=== PATIENT | male | born 1975 | race Caucasian/White ===

== ENCOUNTER 2022-06-12 06:40 | Day surgery (SDC) | payer MEDICARE, OTHER ==
--- NOTE | 2022-06-05 08:51 | NUR ---
PT FROM [facility] AND WILL HAVE A STAFF PERSON WITH HIM AT ALL TIMES.
[~2022-06-12] VITALS: Ht 167.6 cm; Wt 61.8 kg
[~2022-06-12 06:40] MED LIST: ASPIRIN81 MG PO; ATENOLOL100 MG PO; ENALAPRIL MALEA20 MG PO; HYDROCHLOROTH12.5 M1 PO; JARDIANCE25 MG PO; METFORMIN HCL500 MG PO; MULTI VITAMIN1 EACH PO; OLANZAPINE ODT20 MG PO; TRULICITY3 MG/0.5 M SQ; ZOCOR40 MG PO
--- NOTE | 2022-06-12 07:06 | NUR ---
HAS [facility] ACCOMPANYING PT TODAY, RUTH. O R CHARGE AWARE.
--- NOTE | 2022-06-12 09:00 | NUR ---
06/12/22 0900 Magnolia Valdivia PATIENT IS AWAKE AND TALKING WITH ME. HE REPORTS "I THOUGHT I HAD TO GO TO WORK, BUT I DON'T." OXYGEN IS REMOVED AT THIS TIME. OXYGEN SATURATION REMAINS 100% ON RA.
--- NOTE | 2022-06-12 16:55 | OR ---
[facility] [address], [place] [address] Signed DATE OF OPERATION: 06/12/2022 SURGEON: Ivette Andrews MD PREOPERATIVE DIAGNOSES: 1. Screening. 2. Intermittent constipation. POSTOPERATIVE DIAGNOSES: 1. 5 mm and 3 mm polyps at 8 cm in rectum. 2. Minimal pandiverticulosis. PROCEDURE: Colonoscopy with hot biopsy. ESTIMATED BLOOD LOSS: None. INDICATIONS: Autumn is a 47-year-old gentleman, who was asked to see me for his initial screening colonoscopy by his primary care provider. He comes with his caregiver from our [facility]. He has no lower GI complaints other than intermittent constipation. He has no family history of colon cancer or polyps. He has had a previous traumatic brain injury. He has a history of alcohol abuse and associated cardiomyopathy. He is also a diabetic. Consequently we did ask for monitored anesthesia care today, which worked out very well. We did keep his caregiver in the room for the procedure as well. In the office, I gave Autumn a pamphlet on colonoscopy. We had reviewed the test together. There is risk including, but not limited to gas bloating, crampy abdominal pain, bleeding, perforation requiring surgery, and missed diagnosis. He had expressed understanding and wished to proceed. PROCEDURE NOTE: Autumn was taken into our endoscopy suite and placed in the left lateral decubitus position. He was given IV sedation with propofol per our nurse sap bw consultant. A digital rectal exam was performed and this was unremarkable. There were no external hemorrhoids. He had good sphincter tone. Prostate was not particularly concerning. The adult colonoscope had been introduced and advanced under direct visualization of the camera without difficulty. Unfortunately, he still had some areas of heavy particulate stool matter that simply could not be irrigated or suction through the scope. He should consider a double bowel prep in the future. We made our way into the cecum where we Electronically Signed By: IVETTE ANDREWS MD 06/12/22 7434 PATIENT NAME: AUTUMN MOREL OPERATIVE REPORT DATE OF : 75 REPORT #: [id number] PHYSICIAN: IVETTE ANDREWS MD PCP: TERRIE CARLSON MD REPORT IS CONFIDENTIAL AND NOT TO BE RELEASED WITHOUT AUTHORIZATION [facility] [address], [place] [address] Signed could see the ileocecal valve in the base of the cecum. The scope was then slowly withdrawn. We took pictures throughout for photodocumentation. We saw just a few diverticula in the right and left colons. There were few in number, minimal to moderate in size and scattered about. There were no polyps in the colon. He had two small polyps in the rectum, which we removed with a hot biopsy forceps. The scope was then retroflexed in the rectum and really not much in the way of any additional pathology above the anal canal. It looks like he has just very tiny standard internal hemorrhoid columns. After this, the gas was suctioned out and the colonoscope removed. Autumn tolerated the procedure quite well. RECOMMENDATIONS: I will see Autumn back in my office in the next 1 to 2 weeks to review his results. He should have monitored anesthesia care in the future. He will need a double bowel prep in the future. Ivette Andrews MD ALB/MODL /[id number] cc: MD Terrie Bernal MD Copies: IVETTE ANDREWS MD ~ Electronically Signed By: IVETTE ANDREWS MD 06/12/22 1655 PATIENT NAME: ATUUMN MOREL OPERATIVE REPORT DATE OF : 75 REPORT #: [id number] PHYSICIAN: IVETTE ANDREWS MD PCP: TERRIE CARLSON MD REPORT IS CONFIDENTIAL AND NOT TO BE RELEASED WITHOUT AUTHORIZATION
--- NOTE | 2022-06-17 09:16 | PATH ---
[facility] [address], [place] [address] Signed SPECIMEN(S): A RECTAL POLYPS SPECIMEN SOURCE: A. RECTAL POLYPS CLINICAL HISTORY: Colon screening. Rectal polyp x 2, diverticulosis. FINAL PATHOLOGIC DIAGNOSIS: Rectum, polypectomy: - No significant histopathology. - There is no evidence of neoplasia. COMMENT: The sections from the specimen are architecturally normal without crypt distortion. There is no acute or chronic inflammation. There are no abnormal infiltrates. There is no evidence of inflammatory, hyperplastic or adenomatous polyps. TWK:caw:C2NR MICROSCOPIC EXAMINATION: Histologic sections of all submitted blocks are examined by light microscopy. These findings, together with the gross examination, support the pathologic diagnosis. GROSS DESCRIPTION: The specimen, labeled "DJ, 1 (2)," and designated on the requisition "rectum 82" is received in formalin and consists of multiple interiano-white to interiano soft tissue fragment(s) that measure less than 0.1 up to 0.5 cm in greatest dimension. The specimen is entirely submitted in cassette (A1). AI(under the direct supervision of a pathologist) The Gross Description was prepared using a voice recognition system. The report was reviewed for accuracy; however, sound-alike word errors, addition and/or deletions may occur. If there is any question about this report, please contact Client Services. PERFORMING LABORATORY: The technical component was performed by [employer], [address] [place] [id number] (CLIA# [id number]). The professional interpretation was performed by [email or web address] PATIENT NAME: AUTUMN MOREL PATHOLOGY DATE OF : 75 REPORT #: [id number] PHYSICIAN: MANJINDER PATHOLOGY PCP: ESDRAS CARLSON MD REPORT IS CONFIDENTIAL AND NOT TO BE RELEASED WITHOUT AUTHORIZATION [place] [id number] [place], [place] [address] [address] (CLIA#: [id number]). Diagnostician: Lang Cash MD Pathologist Electronically Signed 06/17/2022 Copies: ~ PATIENT NAME: AUTUMN MOREL PATHOLOGY DATE OF : 75 REPORT #: [id number] PHYSICIAN: MANJINDER PATHOLOGY PCP: ESDRAS CARLSON MD REPORT IS CONFIDENTIAL AND NOT TO BE RELEASED WITHOUT AUTHORIZATION
== END 2022-06-12 09:35 | disposition home or self-care (01) ==
LOC: OPS 06:40 → DS 06:40 → OPS 08:15 → DS 09:15 → OPS 09:35
PROVIDERS: ATTEND Colon & Rectal Surgery
PROC: 0DBP8ZZ Excision of Rectum, Via Natural or Artificial Opening Endoscopic (ICD-10-PCS; principal; 2022-06-12 08:15)
DX: Z12.11 Encounter for screening for malignant neoplasm of colon (principal); E11.9 Type 2 diabetes mellitus without complications; E78.5 Hyperlipidemia, unspecified; F17.200 Nicotine dependence, unspecified, uncomplicated; F20.9 Schizophrenia, unspecified; F41.9 Anxiety disorder, unspecified; I42.9 Cardiomyopathy, unspecified; K57.30 Diverticulosis of large intestine without perforation or abscess without bleeding; K62.1 Rectal polyp
CPT/HCPCS: J2704; J7121